=== PATIENT | female | born 1970 | race Caucasian/White ===

== ENCOUNTER → 2018-08-17 | Outpatient (CLI) | payer OTHER | LOC: M RAD 14:53 | DX: Z12.31 Encounter for screening mammogram for malignant neoplasm of breast (principal); Z92.29 Personal history of other drug therapy | CPT/HCPCS: 77067 ==

== ENCOUNTER 2019-02-10 06:45 | Day surgery (SDC) | payer OTHER ==
[~2019-02-10] VITALS: Ht 165.1 cm; Wt 76.7 kg
[~2019-02-10 06:45] MED LIST: ADDE1TAB14 PO; ESTR625TA PO; GABA-843 PO; LEVO88TA3 PO; NS 1,000 ML IV ONE
[2019-02-10] MEDS ORDERED: LIDOCAINE 2% INJ 100 MG/5 ML SDV (FOR ANES.) As Ordered ONE (07:25)
[2019-02-10] MEDS ORDERED: PROPOFOL 500 MG/50 ML VIAL As Ordered ONE (07:26)
[2019-02-10] MEDS ORDERED: PROPOFOL 200 MG/20 ML VIAL As Ordered ONE (08:18)
--- NOTE | 2019-02-10 08:23 | ROOR ---
Patient Name: Janice Norwood Procedure Date: 02/10/2019 7:53 AM Date of : 1970 Age: 48 Room: [facility] Gender: Female Note Status: Finalized Procedure: Colonoscopy Indications: Generalized abdominal pain, Constipation Providers: Walker FERNANDES MD Referring MD: AIMEE YU MD Requesting Provider: Medicines: Monitored Anesthesia Care Complications: No immediate complications. Procedure: Pre-Anesthesia Assessment: - The heart rate, respiratory rate, oxygen saturations, blood pressure, adequacy of pulmonary ventilation, and response to care were monitored throughout the procedure. The Colonoscope was introduced through the anus and advanced to 10 cm into the ileum. The colonoscopy was performed without difficulty. The patient tolerated the procedure well. The quality of the bowel preparation was good. Findings: The perianal and digital rectal examinations were normal. The colon (entire examined portion) was moderately redundant. Small Internal Hemorrhoids. The exam was otherwise without abnormality on direct and retroflexion views. The terminal ileum appeared normal. Impression: - Redundant colon. - Small Internal Hemorrhoids. - The colon examination was otherwise normal on direct and retroflexion views. - The examined portion of the ileum was normal. - No specimens collected. Recommendation: - Use Linzess (linaclotide) 290 mcg PO daily. - (the script was sent to your pharmacy on file) Walker Fernandes MD Walker FERNANDES MD 02/10/2019 8:23:25 AM Electronically signed by Walker FERNANDES MD Number of Addenda: 0 Note Initiated On: 02/10/2019 7:53 AM Estimated Blood Loss: Estimated blood loss: none.
[2019-02-10 08:40] VITALS: BP 118/74
== END 2019-02-10 08:58 | disposition home or self-care (01) ==
LOC: M OPP 06:45
PROVIDERS: ATTEND Internal Medicine Gastroenterology
DX: K64.8 Other hemorrhoids (principal); Q43.8 Other specified congenital malformations of intestine; R10.84 Generalized abdominal pain; K59.00 Constipation, unspecified

== ENCOUNTER → 2020-12-10 | Outpatient (CLI) | payer OTHER ==
[~2020-12-10] MED LIST changes: +GABA-282 PO; -GABA-843 PO; -NS 1,000 ML IV ONE
--- NOTE | 2020-12-10 16:08 | REPMRS ---
Patient History The patient states she has not had a clinical breast exam in over a year. Patient is postmenopausal. No known family history of cancer. Taking estrogen for 5 years. Taking unspecified hormones for 4 years. Digital Woman Screen Mammo: December 10, 2020 - Exam #: [id number] Bilateral CC and MLO view(s) were taken. Technologist: RT Rashmi Prior study comparison: August 17, 2018, bilateral digital mammo screening bilat, performed at [facility]. FINDINGS: There are scattered fibroglandular densities. The Volpara volumetric breast density category is:B. There has been no change in the appearance of the mammogram from the prior studies. There is a mild amount of scattered fibroglandular density which is fairly symmetric. There is no interval development of dominant mass, architectural distortion, or grouped microcalcification suggestive of malignancy. 3-D tomosynthesis shows no additional findings. Assessment: BI-RADS/ACR category 1 mammogram. Negative Mammogram. Recommendation Routine screening mammogram of both breasts in 1 year (for women over age 40). This patient's [facility] Lifetime Breast Cancer Risk is estimated at 7.3 %. This mammogram was interpreted with the aid of an FDA-approved computer-aided dectection system. Electronically Signed By: Nicolas Romo MD 12/10/20 0823
== END ==
LOC: M WHC 14:42
PROVIDERS: ATTEND Family Medicine
DX: Z12.31 Encounter for screening mammogram for malignant neoplasm of breast (principal); Z78.0 Asymptomatic menopausal state

== ENCOUNTER 2021-02-05 15:59 | Emergency (ER) | payer OTHER ==
[~2021-02-05] VITALS: Ht 165.1 cm; Wt 78.8 kg
[2021-02-05 15:59] VITALS: BP 152/93
[2021-02-05] MEDS ORDERED: EXCETAB33 PO (16:09)
[2021-02-05] MEDS ORDERED: ALL10TAB2 PO (16:09)
[2021-02-05] MEDS ORDERED: RIZA5TAB PO (16:09)
[2021-02-05] MEDS ORDERED: FLON1SPR NARES (16:09)
[2021-02-05] MEDS ORDERED: ALL10TAB PO (16:09)
[2021-02-05] MEDS ORDERED: ZOFR4TAB16 PO (16:10)
== END 2021-02-05 17:00 | disposition left against medical advice (07) ==
LOC: M ED 15:59
DX: Z53.21 Procedure and treatment not carried out due to patient leaving prior to being seen by health care provider (principal)

== ENCOUNTER → 2021-07-29 | Outpatient (CLI) | payer OTHER ==
[~2021-07-29] MED LIST changes: +ALL10TAB PO; +ALL10TAB2 PO; +EXCETAB33 PO; +FLON1SPR NARES; +RIZA5TAB2 PO; +ZOFR4TAB16 PO
--- NOTE | 2021-07-30 09:17 | ECGEPIP ---
[facility] Test Date: 2021-07-29 Pat Name: ELA ARGUETA Department: Room: - Gender: Female Emotional Support Teacher: lawson : 1970 Requested By: Janay Bacon PMHNP Order Number: [id number] Reading MD: Walker Mcdaniels Measurements Intervals [place] Rate: 88 P: 62 OK: 124 QRS: 55 QRSD: 76 T: 52 QT: 364 QTc: 440 Interpretive Statements Normal sinus rhythm with sinus arrhythmia No prior ECG available for comparison at the time of interpretation. Electronically Signed on 07-30-2021 9:16:54 EDT by Walker Mcdaniels
== END ==
LOC: M EKG 17:10
PROVIDERS: ATTEND Registered Nurse Psychiatric/Mental Health
DX: Z79.899 Other long term (current) drug therapy (principal)